=== PATIENT | female | born 1965 | race Hispanic/Latino ===

== ENCOUNTER → 2022-10-25 | Outpatient (CLI) | payer MEDICAID ==
[~2022-10-25] MED LIST: AEC81 PO; CARV12.580 PO; CREON6 PO; ESOM40CA PO; HYDR200T75 PO; INS7030 SQ; MYCO500T PO; REGADENOSON 0.4 MG/5 ML PF SYG IVP ONE; TACR1CAP18 PO; TEMA15CA PO
== END | disposition home or self-care (01) ==
LOC: SHCH 08:01
PROVIDERS: ATTEND Internal Medicine Cardiovascular Disease
DX: I25.10 Atherosclerotic heart disease of native coronary artery without angina pectoris (principal)
CPT/HCPCS: 78452; 96374; 93017; J2785; A9500 ×2

== ENCOUNTER 2023-10-20 10:21 | Day surgery (SDC) | payer MEDICARE ==
[~2023-10-20] VITALS: Ht 149.9 cm; Wt 58.1 kg
[2023-10-20] VITALS (11 sets, daily range): BP systolic 122–137; BP diastolic 62–78; PULSE 68–73; RESP 14–18
[~2023-10-20 10:21] MED LIST changes: -REGADENOSON 0.4 MG/5 ML PF SYG IVP ONE
[2023-10-20] MEDS: 0.9%NACL 1000ML 1,000 ML IV ONE (12:54)
[2023-10-20] MEDS ORDERED: AZAT50TA17 PO (13:35)
[2023-10-20] MEDS ORDERED: FLUT15.845 EN (13:35)
[2023-10-20] MEDS ORDERED: SIME180C70 PO (13:35)
[2023-10-20] MEDS ORDERED: FOLI0.8T22 PO (13:35)
[2023-10-20] MEDS ORDERED: CYAN-35 PO (13:35)
[2023-10-20] MEDS ORDERED: TACR1CAP10 PO ×2 (13:35)
[2023-10-20] MEDS ORDERED: LEVE500T19 PO (13:35)
[2023-10-20] MEDS ORDERED: INSU3INS3 SQ (13:35)
[2023-10-20] MEDS ORDERED: FOLI1 PO (13:35)
[2023-10-20] MEDS ORDERED: INSU200I SQ (13:35)
[2023-10-20] MEDS ORDERED: PANT40TA54 PO (13:35)
[2023-10-20] MEDS ORDERED: ASPI-1443 PO (13:35)
[2023-10-20] MEDS ORDERED: APIX2.5T PO (13:35)
[2023-10-20] MEDS ORDERED: BUDE10.22 IH (13:35)
[2023-10-20] MEDS ORDERED: VITAMIN D2 PO (13:35)
[2023-10-20] MEDS ORDERED: AMLO2.5T4 PO (13:35)
[2023-10-20] MEDS ORDERED: CARV25TA PO (13:35)
[2023-10-20] MEDS ORDERED: CALC0.253 PO (13:35)
[2023-10-20] MEDS ORDERED: ATOR40TA71 PO (13:35)
[2023-10-20] MEDS ORDERED: HYDR100T15 PO (13:35)
[2023-10-20] MEDS ORDERED: METO5TAB2 PO (13:35)
[2023-10-20] MEDS ORDERED: proPOFol 10 MG/ML 20ML VIAL IV ONE (14:29)
== END 2023-10-20 15:50 | disposition home or self-care (01) ==
LOC: DAH 10:21 → ENDO 10:21
PROVIDERS: ATTEND Internal Medicine Gastroenterology
DX: R10.13 Epigastric pain (principal); K29.50 Unspecified chronic gastritis without bleeding; K31.89 Other diseases of stomach and duodenum; K59.04 Chronic idiopathic constipation; K86.1 Other chronic pancreatitis; K57.30 Diverticulosis of large intestine without perforation or abscess without bleeding; K21.9 Gastro-esophageal reflux disease without esophagitis; I12.0 Hypertensive chronic kidney disease with stage 5 chronic kidney disease or end stage renal disease; E11.22 Type 2 diabetes mellitus with diabetic chronic kidney disease; N18.6 End stage renal disease; Z86.718 Personal history of other venous thrombosis and embolism; Z86.010 Personal history of colon polyps; Z86.73 Personal history of transient ischemic attack (TIA), and cerebral infarction without residual deficits; Z88.5 Allergy status to narcotic agent; Z88.8 Allergy status to other drugs, medicaments and biological substances; Z90.49 Acquired absence of other specified parts of digestive tract; Z90.710 Acquired absence of both cervix and uterus; Z96.659 Presence of unspecified artificial knee joint; Z79.4 Long term (current) use of insulin; Z79.01 Long term (current) use of anticoagulants; Z79.899 Other long term (current) drug therapy
CPT/HCPCS: 84132; 82948; 36415; 43239; J7030 ×2; J2704; A4620; A4215; A4223; A7002; A4222; A4221; A4663; A4606; J3490